=== PATIENT | male | born 1975 | race Caucasian/White ===

== ENCOUNTER 2022-01-19 18:03 | Emergency (ER) | payer SELFPAY ==
--- NOTE | 2022-01-19 18:09 | XRR_ITS ---
PROCEDURE INFORMATION: Exam: XR Left Hand Exam date and time: 01/19/2022 6:15 PM Age: 46 years old Clinical indication: Injury or trauma; Other: Bit by dog; Bite; Hand; Left; Additional info: Pain TECHNIQUE: Imaging protocol: Radiologic exam of the Left hand. Views: 3 or more views. COMPARISON: No relevant prior studies available. 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 Soft tissues: Possible soft tissue defect over the dorsal aspect of the ring finger middle phalanx. XR/XR hand LT min 3V* [id number] IMPRESSION: 1. 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 2. Possible soft tissue defect over the dorsal aspect of the ring finger middle phalanx.
[2022-01-19 18:32] VITALS: BMI 33.4
--- NOTE | 2022-01-19 18:49 | ED_ITS ---
HPI - Animal Bite General: Chief Complaint: Animal Bite Stated Complaint: left hand pain, swelling Time Seen by Provider: 01/19/22 18:44 Source: patient Mode of arrival: ambulatory Limitations: no limitations History of Present Illness: 46-year-old male who states that he had tried to break up his dog from fighting on Friday and he excellently bit him on the left hand he does have a puncture wound to his left ring finger and pinky finger he states had some pain and some slight redness denies any drainage states pain is a 3 out of 10 denies any worsening or proving factors denies any other injuries his last tetanus was roughly 7 years ago. Associated symptoms: Deny chills, fever(s) or headache(s) Review of Systems 2 Const: Denies: fever(s), chills, body aches or change in appetite Eyes: Denies: blurry vision or eye discomfort ENMT: Denies: throat pain or dental pain Card: Denies: chest pain Resp: Denies: dyspnea GI: Denies: abdominal pain, nausea, vomiting or diarrhea : Denies: dysuria Musc: Reports: extremity pain Skin/Breast: Denies: rash Neuro: Denies: headache(s) Psych: Denies: depression Riky/Lymph: Denies: easy bruising All/Imm: Denies: urticaria Physical Exam Const: COMMON NORMALS: no acute distress, patient oriented x3 and healthy appearing HENMT: COMMON NORMALS: normocephalic and atraumatic HEAD & SCALP: normocephalic and atraumatic Eye: COMMON NORMALS: Equal, round and reactive pupils present and EOMs intact bilaterally PUPIL: Yes Equal, round and reactive pupils present Neck/C-Spine: COMMON NORMALS: full ROM and supple Chest: COMMONS NORMALS: normal inspection of the chest Resp: COMMON NORMALS: normal respiratory effort, No retractions, No use of accessory muscles and clear to auscultation bilaterally AUSCULTATION: clear to auscultation bilaterally Cardio: COMMON NORMALS: regular rate, regular rhythm and No murmurs present (Cardio) RATE: regular rate RHYTHM: regular rhythm GI: INSPECTION: Yes normal to inspection Extremity: COMMON NORMALS: full ROM Neuro: COMMON NORMALS: patient oriented x3, moves all extremities and no focal motor deficits Psych: COMMON NORMALS: mental status grossly normal, Normal thought process present and cooperative THOUGHT PROCESS: Normal thought process present Skin: NARRATIVE SKIN EXAM: Puncture wound to left ring and little finger mild erythema to the hand less than 2 cm MDM - Animal Bite Medical Decision Making Patient Jose with a dog bite to his left pinky and ring finger does have a small laceration to the left ring finger this happened Friday it is not suturable. He is to keep it clean he does have some mild cellulitis to his hand does not go past his wrist no streaking we will place him on Augmentin give him a tetanus he is to return if the erythema worsens he understands and agrees to plan. Discharge Plan Discharge Patient Disposition: Home Clinical Impression: Dog bite Condition: Stable Prescriptions: New Augmentin 500-125 mg tablet 1 tab PO BID Qty: 14 0RF Discharge Orders: Discharge ED (Routine); Ordered 01/19/22 Ordered By: Greg Briggs Referrals: Erum Nielsen, [facility] [Primary Care Provider] - 1-3 days Discharge Diet: Advance as tolerated Discharge Activity: Resume usual activity Patient Instructions: Animal Bite (ED) Coding Level of Care Code ED Ict Security Specialist for Tomás Baez
[2022-01-19] MEDS: amoxicillin-clav 875-125 mg Tablet 1 TAB PO (19:03)
[2022-01-19] MEDS: tetanus-dipt-pertussis 0.5 mL SDV IM (19:03)
[2022-01-19 19:07] VITALS: BP 145/78; PULSE 78; RESP 16; O2SAT 97
== END 2022-01-19 19:10 | disposition home or self-care (01) ==
PROVIDERS: Emergency Provider Emergency Medicine; PCP Nurse Practitioner
DX: S61.257A Open bite of left little finger without damage to nail, initial encounter (principal); S61.255A Open bite of left ring finger without damage to nail, initial encounter; W54.0XXA Bitten by dog, initial encounter; Z23 Encounter for immunization
CPT/HCPCS: 73130; 90471; 90715; 99283